=== PATIENT | male | born 1940 | race Caucasian/White ===

== ENCOUNTER 2022-07-18 09:13 | Day surgery (SDC) | payer MEDICARE, BC ==
[~2022-07-18 09:13] MED LIST: Lactated Ringers 1,000 ML IV PRN; Sodium Chloride 0.9% 10 ML Syringe FLUSH PRN
[2022-07-18] MEDS ORDERED: fentaNYL 100 MCG/2 ML SDV IV ONE (09:14)
[2022-07-18] MEDS ORDERED: Labetalol 100 MG/20 ML MDV IV ONE (09:14)
[2022-07-18] MEDS ORDERED: Midazolam 1 MG/ML 2 ML SDV IV ONE (09:14)
[2022-07-18] MEDS ORDERED: acetaZOLAMIDE 500 MG Cap.ER PO ONE (09:30)
[2022-07-18] MEDS ORDERED: Sodium Chloride 0.9% 10 ML Syringe FLUSH PRN (09:45)
[2022-07-18] MEDS ORDERED: Lactated Ringers 1,000 ML IV PRN (09:45)
== END 2022-07-18 12:07 | disposition home or self-care (01) ==
LOC: FB.SDS 09:13
PROVIDERS: ATTEND Ophthalmology
DX: H40.1111 Primary open-angle glaucoma, right eye, mild stage (principal); H25.13 Age-related nuclear cataract, bilateral; I48.91 Unspecified atrial fibrillation; Z79.01 Long term (current) use of anticoagulants; Z79.899 Other long term (current) drug therapy; Z87.891 Personal history of nicotine dependence
CPT/HCPCS: 00142; A9270-GY; C1783; J2250; J3010; J3490; V2632

== ENCOUNTER 2022-08-01 09:15 | Day surgery (SDC) | payer MEDICARE, BC ==
[2022-08-01] MEDS ORDERED: Midazolam 1 MG/ML 2 ML SDV IV ONE (09:16)
[2022-08-01] MEDS ORDERED: fentaNYL 100 MCG/2 ML SDV IV ONE (09:16)
[2022-08-01] MEDS ORDERED: Labetalol 100 MG/20 ML MDV IV ONE (09:16)
[2022-08-01] MEDS ORDERED: Sodium Chloride 0.9% 10 ML Syringe FLUSH PRN (09:30)
[2022-08-01] MEDS ORDERED: Lactated Ringers 1,000 ML IV PRN (09:30)
[2022-08-01] MEDS ORDERED: acetaZOLAMIDE 500 MG Cap.ER PO ONE (11:30)
== END 2022-08-01 11:44 | disposition home or self-care (01) ==
LOC: FB.SDS 09:15
PROVIDERS: ATTEND Ophthalmology
DX: H40.1121 Primary open-angle glaucoma, left eye, mild stage (principal); H25.13 Age-related nuclear cataract, bilateral; I48.91 Unspecified atrial fibrillation; Z79.899 Other long term (current) drug therapy; Z87.891 Personal history of nicotine dependence
CPT/HCPCS: 00142; A9270-GY; C1783; J2250; J3010; J3490; V2632